=== PATIENT | female | born 1960 | race African-American/Black ===

== ENCOUNTER 2018-12-10 11:09 | Inpatient (IN) | payer MEDICAID ==
[~2018-12-10] VITALS: Ht 167.6 cm; Wt 75.7 kg
[~2018-12-10 11:09] MED LIST: LOP25 PO; MYCO180T PO; NIFE30TA94 PO; OMEG1CAP50 PO; PRED5TAB48 PO; PROG1 PO; PROT40 PO
[2018-12-10 12:53] LABS: CLARITY URINE CLOUDY (CLEAR); COLOR URINE YELLOW (YELLOW); KETONES URINE NEGATIVE (NEGATIVE); LEUKOCYTE ESTERASE URINE 1+ (NEGATIVE); NITRITE URINE POSITIVE (NEGATIVE); OCCULT BLOOD URINE NEGATIVE (NEGATIVE); PH URINE 5.5 (4.5-8.0); PROTEIN URINE 2+ (NEGATIVE); SPECIFIC GRAVITY URINE 1.015 (1.005-1.030); UROBILINOGEN URINE 0.2 E.U./dL (0.2-1.0)
[2018-12-10] MEDS ORDERED: LEVOFLOXACIN 500MG TABLET PO ONE (15:00)
[2018-12-10 15:25] LABS: HEMATOCRIT. 21.9 % (36.0-48.0); HEMOGLOBIN. 7.1 g/dL (12.0-16.0); MEAN CORPUSCULAR VOLUME 89.5 fL (81.0-99.0); MEAN PLATELET VOLUME 7.2 fl (7.4-10.4); PLATELET 225 x1000/uL (130-400); RED BLOOD CELL COUNT 2.45 mill/uL (4.2-5.4); RED CELL DISTRIBUTION WIDTH 14.1 % (11.6-14.6)
[2018-12-10 16:12] LABS: PLATELET ESTIMATE NORMAL
[2018-12-10] MEDS ORDERED: DIPHENHYDRAMINE 50MG/ML VIAL IV PRN (17:15)
[2018-12-10] MEDS ORDERED: IPRATROPIUM/ALBUTEROL 0.5-3(2.5)MG/3ML NEB INH PRN (17:15)
[2018-12-10] MEDS ORDERED: DOCUSATE SODIUM 100MG CAPSULE PO PRN (17:15)
[2018-12-10] MEDS ORDERED: HYDROCODONE/ACETAMINOPHEN 5/325MG TABLET PO PRN (17:15)
[2018-12-10] MEDS ORDERED: LEVOFLOXACIN 500MG PREMIX 100 ML IV SCH (17:15)
[2018-12-10] MEDS ORDERED: GUAIFENESIN 200MG/10ML SUGAR FREE UDC PO PRN (17:15)
[2018-12-10] MEDS ORDERED: MAGNESIUM/ALUMINUM HYDROXIDE/SIMETHICONE 30ML UDC PO PRN (17:15)
[2018-12-10] MEDS ORDERED: ONDANSETRON HCL 4MG/2ML INJ IV PRN (17:15)
[2018-12-10] MEDS ORDERED: CLONIDINE 0.1MG TABLET PO PRN (17:15)
[2018-12-10] MEDS ORDERED: ACETAMINOPHEN 325MG TABLET PO PRN (17:15)
[2018-12-10 18:03] LABS: PHOSPHORUS 3.4 mg/dL (2.5-4.9)
[2018-12-10 19:10] VITALS: BP 179/83
[2018-12-10] MEDS ORDERED: TEMAZEPAM 15MG CAPSULE PO PRN (19:15)
[2018-12-10 20:11] VITALS: BP 151/92
[2018-12-10 20:45] VITALS: BP 151/92
[2018-12-10] MEDS ORDERED: MYCOPHENOLATE SODIUM 180 MG TABLET.DR PO SCH (21:00)
[2018-12-10 21:43] LABS: TOTAL IRON BINDING CAPACITY 208 ug/dL (250-450)
[2018-12-10] MEDS: PANTOPRAZOLE 40MG DR TABLET PO SCH (21:53)
[2018-12-10] MEDS: HYDRALAZINE HCL 25MG TABLET PO SCH (21:53)
[2018-12-10] MEDS: MEROPENEM 500 MG in SODIUM CHLORIDE 0.9% 50 ML IV SCH (21:53)
[2018-12-10] MEDS: METOPROLOL TARTRATE 50MG TABLET PO SCH (21:53)
[2018-12-10] MEDS ORDERED: HYDRALAZINE HCL 25MG TABLET PO SCH (22:00)
[2018-12-10] MEDS: TACROLIMUS 1MG CAPSULE PO SCH (23:15)
[2018-12-10] MEDS: MYCOPHENOLATE SODIUM 180 MG TABLET.DR PO SCH (23:15)
[2018-12-11] VITALS (11 sets, daily range): BP systolic 117–149; BP diastolic 55–84
[2018-12-11 00:06] LABS: CREATINE KINASE 150 IU/L (26-192)
[2018-12-11 00:07] LABS: CREATINE KINASE MB FRACTION < 1.0 ng/mL (0.5-3.6)
[2018-12-11] MEDS ORDERED: CALC0.253 PO (02:07)
[2018-12-11] MEDS ORDERED: HYDR-4134 PO (02:07)
[2018-12-11] MEDS ORDERED: ALBU90AE IH (02:07)
[2018-12-11] MEDS ORDERED: VALC450 PO (02:07)
[2018-12-11] MEDS ORDERED: NYST15PO4 TP (02:07)
[2018-12-11] MEDS: HYDRALAZINE HCL 25MG TABLET PO SCH ×3 (06:00→21:06)
[2018-12-11 07:31] LABS: BASOPHILS % 0.7 % (0.0-2.0); EOSINOPHILS % 3.8 % (0.0-5.0); HEMATOCRIT. 24.3 % (36.0-48.0); HEMOGLOBIN. 8.1 g/dL (12.0-16.0); MEAN CORPUSCULAR HEMOGLOBIN 30.4 pg (28.0-32.0); MEAN CORPUSCULAR VOLUME 91.9 fL (81.0-99.0); MEAN PLATELET VOLUME 7.6 fl (7.4-10.4); MONOCYTES % 14.7 % (2.0-8.0); NEUTROPHILS % 64.8 % (40.0-76.0); PLATELET 204 x1000/uL (130-400); RED BLOOD CELL COUNT 2.65 mill/uL (4.2-5.4)
[2018-12-11 08:09] LABS: CHLORIDE 110 mEq/L (98-107)
[2018-12-11 08:28] LABS: CREATINE KINASE MB FRACTION < 1.0 ng/mL (0.5-3.6)
[2018-12-11 08:29] LABS: CREATINE KINASE 135 IU/L (26-192)
[2018-12-11 08:33] LABS: PHOSPHORUS 3.8 mg/dL (2.5-4.9)
[2018-12-11 08:35] LABS: LDL CHOLESTEROL 100 mg/dL (5-100)
[2018-12-11 08:37] LABS: HDL CHOLESTEROL 53 mg/dL (40-59)
[2018-12-11] MEDS: SEVELAMER CARBONATE 800 MG TABLET PO SCH ×3 (08:48→17:50)
[2018-12-11] MEDS: FISH OIL/OMEGA-3 FATTY ACIDS 1000MG CAPSULE PO SCH (08:50)
[2018-12-11] MEDS: CALCITRIOL 0.25MCG CAPSULE PO SCH (08:50)
[2018-12-11] MEDS: METOPROLOL TARTRATE 50MG TABLET PO SCH ×2 (08:51→21:06)
[2018-12-11] MEDS ORDERED: METOPROLOL TARTRATE 50MG TABLET PO SCH (09:00)
[2018-12-11] MEDS ORDERED: NIFEDIPINE XL 90MG TAB PO SCH (09:00)
[2018-12-11] MEDS: DEXT 5%/0.45% NACL 1000ML 1,000 ML IV SCH (09:09)
[2018-12-11] MEDS: FERROUS SULFATE 325MG TABLET PO SCH ×2 (09:47→17:21)
[2018-12-11] MEDS: PREDNISONE 5MG TABLET PO SCH (09:48)
[2018-12-11] MEDS: MYCOPHENOLATE SODIUM 180 MG TABLET.DR PO SCH ×2 (09:48→21:05)
[2018-12-11] MEDS: NYSTATIN 100,000 UNITS/ML 5ML UDC SSW SCH ×3 (09:50→17:26)
[2018-12-11] MEDS: NIFEDIPINE XL 90MG TAB PO SCH (09:50)
[2018-12-11] MEDS: MEROPENEM 500 MG in SODIUM CHLORIDE 0.9% 50 ML IV SCH ×2 (10:14→21:07)
[2018-12-11 10:20] LABS: HEMATOCRIT 24.9 % (36.0-48.0); HEMOGLOBIN 8.2 g/dL (12.0-16.0)
[2018-12-11] MEDS: TACROLIMUS 1MG CAPSULE PO SCH ×2 (17:26→21:06)
[2018-12-11] MEDS ORDERED: EPOETIN ALFA 10000UNITS/ML VIAL SUBCUT SCH (21:00)
[2018-12-11] MEDS: PANTOPRAZOLE 40MG DR TABLET PO SCH (21:06)
[2018-12-12] VITALS: BP 129/77
[2018-12-12] MEDS: DEXT 5%/0.45% NACL 1000ML 1,000 ML IV SCH ×2 (01:47→19:40)
[2018-12-12 04:00] VITALS: BP 146/75
[2018-12-12] MEDS: HYDRALAZINE HCL 25MG TABLET PO SCH ×3 (06:00→23:19)
[2018-12-12] MEDS: SEVELAMER CARBONATE 800 MG TABLET PO SCH ×3 (07:50→17:50)
[2018-12-12 08:00] VITALS: BP 163/77
[2018-12-12] MEDS: FISH OIL/OMEGA-3 FATTY ACIDS 1000MG CAPSULE PO SCH (09:00)
[2018-12-12] MEDS: CALCITRIOL 0.25MCG CAPSULE PO SCH (10:03)
[2018-12-12] MEDS: MYCOPHENOLATE SODIUM 180 MG TABLET.DR PO SCH ×2 (10:03→20:52)
[2018-12-12] MEDS: FERROUS SULFATE 325MG TABLET PO SCH ×2 (10:03→17:21)
[2018-12-12] MEDS: NYSTATIN 100,000 UNITS/ML 5ML UDC SSW SCH ×3 (10:04→17:21)
[2018-12-12] MEDS: TACROLIMUS 1MG CAPSULE PO SCH ×2 (10:04→20:52)
[2018-12-12] MEDS: PREDNISONE 5MG TABLET PO SCH (10:04)
[2018-12-12] MEDS: METOPROLOL TARTRATE 50MG TABLET PO SCH ×2 (10:11→20:51)
[2018-12-12] MEDS: NIFEDIPINE XL 90MG TAB PO SCH (10:13)
[2018-12-12] MEDS: MEROPENEM 500 MG in SODIUM CHLORIDE 0.9% 50 ML IV SCH ×2 (11:13→23:50)
[2018-12-12 12:00] VITALS: BP 115/62
[2018-12-12 16:00] VITALS: BP 114/63
[2018-12-12] MEDS: VALGANCICLOVIR HYDROCHLORIDE 450MG TABLET PO SCH (16:41)
[2018-12-12 20:00] VITALS: BP 145/78
[2018-12-12] MEDS ORDERED: MAGNESIUM 1 G PREMIX 100 ML IV NR (20:00)
[2018-12-12] MEDS: PANTOPRAZOLE 40MG DR TABLET PO SCH (20:52)
[2018-12-13] VITALS: BP 147/83
[2018-12-13 04:00] VITALS: BP 152/70
[2018-12-13 05:20] LABS: BASOPHILS % 0.5 % (0.0-2.0); EOSINOPHILS % 3.2 % (0.0-5.0); HEMATOCRIT. 24.6 % (36.0-48.0); HEMOGLOBIN. 8.1 g/dL (12.0-16.0); LYMPHOCYTES % 15.8 % (20.0-50.0); MEAN CORPUSCULAR HEMOGLOBIN 29.5 pg (28.0-32.0); MEAN CORPUSCULAR VOLUME 89.2 fL (81.0-99.0); MEAN PLATELET VOLUME 7.6 fl (7.4-10.4); MONOCYTES % 12.5 % (2.0-8.0); PLATELET 212 x1000/uL (130-400); RED BLOOD CELL COUNT 2.76 mill/uL (4.2-5.4); RED CELL DISTRIBUTION WIDTH 13.9 % (11.6-14.6)
[2018-12-13] MEDS: HYDRALAZINE HCL 25MG TABLET PO SCH ×3 (05:33→21:00)
[2018-12-13 05:37] LABS: PARTIAL THROMBOPLASTIN TIME 26.6 sec (23.4-31.0); PROTHROMBIN TIME 10.1 sec (9.6-11.0)
[2018-12-13] MEDS ORDERED: LIDOCAINE HCL 1% 20ML VIAL (Pyxis) INJ ONE (07:26)
[2018-12-13 08:00] VITALS: BP 141/70
[2018-12-13] MEDS: CALCITRIOL 0.25MCG CAPSULE PO SCH (09:28)
[2018-12-13] MEDS: NIFEDIPINE XL 90MG TAB PO SCH (09:28)
[2018-12-13] MEDS: FISH OIL/OMEGA-3 FATTY ACIDS 1000MG CAPSULE PO SCH (09:28)
[2018-12-13] MEDS: NYSTATIN 100,000 UNITS/ML 5ML UDC SSW SCH ×3 (09:28→18:24)
[2018-12-13] MEDS: PREDNISONE 5MG TABLET PO SCH (09:28)
[2018-12-13] MEDS: SEVELAMER CARBONATE 800 MG TABLET PO SCH ×3 (09:29→17:50)
[2018-12-13] MEDS: TACROLIMUS 1MG CAPSULE PO SCH ×2 (09:29→20:59)
[2018-12-13] MEDS: MYCOPHENOLATE SODIUM 180 MG TABLET.DR PO SCH ×2 (09:30→20:59)
[2018-12-13] MEDS: METOPROLOL TARTRATE 50MG TABLET PO SCH ×2 (09:30→21:00)
[2018-12-13] MEDS: FERROUS SULFATE 325MG TABLET PO SCH ×2 (09:31→18:24)
[2018-12-13] MEDS: MEROPENEM 500 MG in SODIUM CHLORIDE 0.9% 50 ML IV SCH ×2 (11:54→21:01)
[2018-12-13 12:00] VITALS: BP 163/70
[2018-12-13 16:00] VITALS: BP 136/64
[2018-12-13] MEDS: DEXT 5%/0.45% NACL 1000ML 1,000 ML IV SCH (18:24)
[2018-12-13 20:00] VITALS: BP 170/81
[2018-12-13] MEDS ORDERED: FAMOTIDINE 20MG TABLET PO SCH (21:00)
[2018-12-14] VITALS: BP 116/77
[2018-12-14] MEDS: DEXT 5%/0.45% NACL 1000ML 1,000 ML IV SCH (03:25)
[2018-12-14 04:00] VITALS: BP 174/58
[2018-12-14] MEDS: HYDRALAZINE HCL 25MG TABLET PO SCH ×2 (05:10→13:57)
[2018-12-14] MEDS: SEVELAMER CARBONATE 800 MG TABLET PO SCH ×2 (07:50→12:26)
[2018-12-14 08:00] VITALS: BP 180/59
[2018-12-14] MEDS: FISH OIL/OMEGA-3 FATTY ACIDS 1000MG CAPSULE PO SCH (08:55)
[2018-12-14] MEDS: FERROUS SULFATE 325MG TABLET PO SCH (08:56)
[2018-12-14] MEDS: CALCITRIOL 0.25MCG CAPSULE PO SCH (08:57)
[2018-12-14] MEDS: VALGANCICLOVIR HYDROCHLORIDE 450MG TABLET PO SCH (08:57)
[2018-12-14] MEDS: MYCOPHENOLATE SODIUM 180 MG TABLET.DR PO SCH (08:57)
[2018-12-14] MEDS: TACROLIMUS 1MG CAPSULE PO SCH (08:57)
[2018-12-14] MEDS: METOPROLOL TARTRATE 50MG TABLET PO SCH (08:58)
[2018-12-14] MEDS: NIFEDIPINE XL 90MG TAB PO SCH (08:58)
[2018-12-14] MEDS: PREDNISONE 5MG TABLET PO SCH (08:58)
[2018-12-14] MEDS: NYSTATIN 100,000 UNITS/ML 5ML UDC SSW SCH ×2 (08:59→13:00)
[2018-12-14] MEDS: MEROPENEM 500 MG in SODIUM CHLORIDE 0.9% 50 ML IV SCH (10:52)
[2018-12-14 12:00] VITALS: BP 131/71
[2018-12-14 16:42] VITALS: BP 131/71
[2018-12-16 04:16] LABS: 25-HYDROXY VITAMIN D3 17 ng/mL (.)
== END 2018-12-14 17:41 | disposition home health service (06) | DRG 463 ==
LOC: ER 11:09 → 6WST 16:58 → ENRESERV 17:55 → EDBEDREQSVC 19:02 → EDBEDREQ 19:02 → EDBEDREQTM 19:02
PROVIDERS: ADMIT Internal Medicine; ATTEND Internal Medicine
PROC: 30233N1 Transfusion of Nonautologous Red Blood Cells into Peripheral Vein, Percutaneous Approach (ICD-10-PCS; 2018-12-11)
PROC: 02HV33Z Insertion of Infusion Device into Superior Vena Cava, Percutaneous Approach (ICD-10-PCS; principal; 2018-12-13)
PROC: B548ZZA Ultrasonography of Superior Vena Cava, Guidance (ICD-10-PCS; 2018-12-13)
PROC: B5181ZA Fluoroscopy of Superior Vena Cava using Low Osmolar Contrast, Guidance (ICD-10-PCS; 2018-12-13)
DX: N30.00 Acute cystitis without hematuria (principal); T86.19 Other complication of kidney transplant; M32.9 Systemic lupus erythematosus, unspecified; E46 Unspecified protein-calorie malnutrition; N13.70 Vesicoureteral-reflux, unspecified; E83.42 Hypomagnesemia; N18.4 Chronic kidney disease, stage 4 (severe); R15.9 Full incontinence of feces; B96.20 Unspecified Escherichia coli [E. coli] as the cause of diseases classified elsewhere; J42 Unspecified chronic bronchitis; J32.9 Chronic sinusitis, unspecified; I12.9 Hypertensive chronic kidney disease with stage 1 through stage 4 chronic kidney disease, or unspecified chronic kidney disease; D72.819 Decreased white blood cell count, unspecified; D63.8 Anemia in other chronic diseases classified elsewhere; Z16.12 Extended spectrum beta lactamase (ESBL) resistance; Z96.642 Presence of left artificial hip joint; Y83.0 Surgical operation with transplant of whole organ as the cause of abnormal reaction of the patient, or of later complication, without mention of misadventure at the time of the procedure; Z85.41 Personal history of malignant neoplasm of cervix uteri; Z90.710 Acquired absence of both cervix and uterus; Z79.899 Other long term (current) drug therapy; Z86.718 Personal history of other venous thrombosis and embolism; Z88.1 Allergy status to other antibiotic agents; Z88.0 Allergy status to penicillin; Z88.8 Allergy status to other drugs, medicaments and biological substances; Z68.27 Body mass index [BMI] 27.0-27.9, adult
CPT/HCPCS: 36415; 36573; 80048; 80061; 82306; 82550; 82553; 83540; 83550; 83735; 83970; 84100; 84443; 85014; 85018; 85049; 85384; 86850; 86900; 86920; 87077; 87186; 93970; 96360; 99285; C1725; C1893; J0885; J2185; J3475; J3490; J7040; J7507; J7512; J7517; P9016

== ENCOUNTER 2018-12-24 06:13 | Emergency (ER) | payer MEDICAID ==
[~2018-12-24] VITALS: Ht 167.6 cm; Wt 73.6 kg
[~2018-12-24 06:13] MED LIST changes: +ALBU90AE IH; +CALC0.253 PO; +HYDR-4134 PO; +NYST15PO4 TP; +VALC450 PO
[2018-12-24 07:30] VITALS: BP 158/80
== END 2018-12-24 09:15 | disposition home or self-care (01) ==
LOC: ER 06:13
DX: Z44.8 Encounter for fitting and adjustment of other external prosthetic devices (principal); I10 Essential (primary) hypertension; N28.9 Disorder of kidney and ureter, unspecified; Z88.0 Allergy status to penicillin; Z88.1 Allergy status to other antibiotic agents; Z79.899 Other long term (current) drug therapy; Z96.649 Presence of unspecified artificial hip joint; Z90.710 Acquired absence of both cervix and uterus; Z94.0 Kidney transplant status
CPT/HCPCS: 99282

== ENCOUNTER 2019-06-01 11:45 | Emergency (ER) | payer MEDICAID ==
[~2019-06-01] VITALS: Ht 165.1 cm; Wt 70.2 kg
[2019-06-01] MEDS ORDERED: HYDRALAZINE HCL 50MG TABLET PO ONE (13:00)
[2019-06-01 14:48] VITALS: BP 163/88
== END 2019-06-01 14:52 | disposition home or self-care (01) ==
LOC: ER 12:30
DX: I10 Essential (primary) hypertension (principal); Z90.710 Acquired absence of both cervix and uterus; Z88.1 Allergy status to other antibiotic agents; Z88.0 Allergy status to penicillin; Z79.899 Other long term (current) drug therapy
CPT/HCPCS: 99282

== ENCOUNTER 2019-12-16 10:40 | Inpatient (IN) | payer MEDICAID ==
[~2019-12-16] VITALS: Ht 162.6 cm; Wt 53.2 kg
[2019-12-16 11:54] LABS: BG BASE EXCESS 5.5 mmol/L (-2.0-2.0); BG CARBOXYHEMOGLOBIN 0.3 % (0.5-1.5); BG DEOXYHEMOGLOBIN 4.8 % (0.0-5.0); BG FRACTION INSPIRED OXYGEN 21; BG HCO3 ACT 28.8 mmol/L (22.0-26.0); BG METHEMOGLOBIN 0.2 % (0.0-1.5); BG OXYGEN SATURATION 95.2 % (92.0-98.5); BG OXYHEMOGLOBIN 94.7 % (94.0-97.0); BG PCO2 36.9 mmHg (35.0-45.0); BG PO2 75.7 mmHg (75.0-100.0); BG SAMPLE SITE RIGHT RADIAL; BG TOTAL HEMOGLOBIN 10.7 g/dL (12.0-18.0); BG VENT MODE ROOM AIR
[2019-12-16 11:59] LABS: BASOPHILS % 0.7 % (0.0-2.0); EOSINOPHILS % 8.4 % (0.0-5.0); HEMATOCRIT. 31.2 % (36.0-48.0); HEMOGLOBIN. 10.1 g/dL (12.0-16.0); LYMPHOCYTES % 23.3 % (20.0-50.0); MEAN CORPUSCULAR HEMOGLOBIN 27.5 pg (28.0-32.0); MEAN CORPUSCULAR VOLUME 84.9 fL (81.0-99.0); MEAN PLATELET VOLUME 7.6 fl (7.4-10.4); MONOCYTES % 11.5 % (2.0-8.0); NEUTROPHILS % 56.1 % (40.0-76.0); PLATELET 260 x1000/uL (130-400); RED BLOOD CELL COUNT 3.67 mill/uL (4.2-5.4); RED CELL DISTRIBUTION WIDTH 17.3 % (11.6-14.6)
[2019-12-16 12:07] LABS: CHLORIDE 102 mEq/L (98-107)
[2019-12-16] MEDS ORDERED: HYDROCODONE/ACETAMINOPHEN 5/325MG TABLET PO PRN (18:45)
[2019-12-16] MEDS ORDERED: ACETAMINOPHEN 325MG TABLET PO PRN ×2 (18:45)
[2019-12-16] MEDS ORDERED: LORAZEPAM 0.5MG TABLET PO PRN (18:45)
[2019-12-16] MEDS ORDERED: DOCUSATE SODIUM 100MG CAPSULE PO PRN (18:45)
[2019-12-16] MEDS ORDERED: ONDANSETRON HCL 4MG/2ML INJ IV PRN (18:45)
[2019-12-16] MEDS ORDERED: TEMAZEPAM 15MG CAPSULE PO PRN (19:00)
[2019-12-16 21:30] VITALS: BP_SYST 154; BP_SYST 170; BP_DIAS 92
[2019-12-16] MEDS: ENOXAPARIN 30MG/0.3ML SYR SUBCUT SCH (22:42)
[2019-12-16] MEDS: METOPROLOL TARTRATE 25MG TABLET PO SCH (22:42)
[2019-12-17] VITALS (7 sets, daily range): BP systolic 150–187; BP diastolic 90–106
[2019-12-17] MEDS ORDERED: FERR325T6 PO (02:09)
[2019-12-17] MEDS ORDERED: CLON0.2T PO (02:13)
[2019-12-17] MEDS ORDERED: FOLI1TAB87 PO (02:13)
[2019-12-17] MEDS ORDERED: FAMO20TA8 PO (02:13)
[2019-12-17] MEDS ORDERED: ACET-2708 MT (02:13)
[2019-12-17] MEDS: HYDRALAZINE HCL 25MG TABLET PO SCH ×3 (05:33→21:52)
[2019-12-17 06:30] LABS: HEMATOCRIT. 30.9 % (36.0-48.0); HEMOGLOBIN. 10.1 g/dL (12.0-16.0); LYMPHOCYTES % 35.2 % (20.0-50.0); MEAN CORPUSCULAR HEMOGLOBIN 27.7 pg (28.0-32.0); MEAN CORPUSCULAR VOLUME 84.9 fL (81.0-99.0); MEAN PLATELET VOLUME 7.7 fl (7.4-10.4); MONOCYTES % 11.4 % (2.0-8.0); NEUTROPHILS % 44.4 % (40.0-76.0); PLATELET 263 x1000/uL (130-400); RED BLOOD CELL COUNT 3.64 mill/uL (4.2-5.4); RED CELL DISTRIBUTION WIDTH 17.1 % (11.6-14.6)
[2019-12-17 06:43] LABS: PHOSPHORUS 4.3 mg/dL (2.5-4.9)
[2019-12-17 07:06] LABS: VITAMIN B12 SERUM 896 pg/mL (211-911)
[2019-12-17 07:14] LABS: FOLIC ACID (FOLATE) SERUM > 20.00 ng/mL (>5.38)
[2019-12-17] MEDS: CALCIUM ACETATE 667MG CAPSULE PO SCH ×4 (08:10→18:10)
[2019-12-17] MEDS: NIFEDIPINE XL 90MG TAB PO SCH (08:36)
[2019-12-17] MEDS: FOLIC ACID/VITAMIN B COMP W-C TABLET PO SCH ×2 (08:36→08:58)
[2019-12-17] MEDS: METOPROLOL TARTRATE 25MG TABLET PO SCH ×2 (08:37→21:53)
[2019-12-17] MEDS: PANTOPRAZOLE 40MG DR TABLET PO SCH (08:37)
[2019-12-17] MEDS: CALCITRIOL 0.25MCG CAPSULE PO SCH (08:37)
[2019-12-17] MEDS: PREDNISONE 5MG TABLET PO SCH (08:38)
[2019-12-17] MEDS: CLONIDINE 0.1MG TABLET PO PRN ×2 (08:38→21:52)
[2019-12-17] MEDS ORDERED: GUAIFENESIN 200MG/10ML SUGAR FREE UDC PO PRN (11:30)
[2019-12-17] MEDS ORDERED: ALBUTEROL 6.7GM HFA INHALER ORI PRN (11:45)
[2019-12-17] MEDS ORDERED: AZTREONAM 1 G in DEXTROSE 5% WATER 50 ML IV NR (15:00)
[2019-12-17] MEDS: METRONIDAZOLE 500 MG PREMIX 100 ML IV SCH (16:04)
[2019-12-17] MEDS: ENOXAPARIN 30MG/0.3ML SYR SUBCUT SCH (20:15)
[2019-12-17] MEDS ORDERED: ALTEPLASE 2MG/VIAL ITC NR (20:30)
[2019-12-18] VITALS: BP 159/102
[2019-12-18] MEDS: METRONIDAZOLE 500 MG PREMIX 100 ML IV SCH ×2 (02:10→14:32)
[2019-12-18] MEDS: AZTREONAM 500MG in DEXTROSE 5% WATER 50ML IV SCH ×2 (03:59→16:02)
[2019-12-18 04:00] VITALS: BP 188/102
[2019-12-18] MEDS: HYDRALAZINE HCL 25MG TABLET PO SCH ×3 (05:24→22:16)
[2019-12-18] MEDS: CALCIUM ACETATE 667MG CAPSULE PO SCH ×3 (06:16→17:32)
[2019-12-18 08:00] VITALS: BP 174/101
[2019-12-18] MEDS: METOPROLOL TARTRATE 25MG TABLET PO SCH ×2 (08:11→22:13)
[2019-12-18] MEDS: PANTOPRAZOLE 40MG DR TABLET PO SCH (08:11)
[2019-12-18] MEDS: NIFEDIPINE XL 90MG TAB PO SCH (08:12)
[2019-12-18] MEDS: FOLIC ACID/VITAMIN B COMP W-C TABLET PO SCH (08:12)
[2019-12-18] MEDS: PREDNISONE 5MG TABLET PO SCH (08:12)
[2019-12-18] MEDS: CALCITRIOL 0.25MCG CAPSULE PO SCH (08:12)
[2019-12-18] MEDS ORDERED: VALGANCICLOVIR HYDROCHLORIDE 450MG TABLET PO SCH (09:00)
[2019-12-18 12:00] VITALS: BP 167/99
[2019-12-18] MEDS: CLONIDINE 0.1MG TABLET PO PRN (12:47)
[2019-12-18] MEDS: ALBUTEROL 6.7GM HFA INHALER ORI SCH (14:00)
[2019-12-18 16:00] VITALS: BP 145/87
[2019-12-18 20:00] VITALS: BP 126/70
[2019-12-18] MEDS: ENOXAPARIN 30MG/0.3ML SYR SUBCUT SCH (22:13)
[2019-12-19] MEDS: METRONIDAZOLE 500 MG PREMIX 100 ML IV SCH ×2 (03:16→14:32)
[2019-12-19] MEDS: AZTREONAM 500MG in DEXTROSE 5% WATER 50ML IV SCH ×2 (03:17→16:33)
[2019-12-19 04:00] VITALS: BP 156/89
[2019-12-19] MEDS: CALCIUM ACETATE 667MG CAPSULE PO SCH ×4 (06:48→17:37)
[2019-12-19] MEDS: HYDRALAZINE HCL 25MG TABLET PO SCH (06:52)
[2019-12-19 07:13] LABS: BASOPHILS % 1.1 % (0.0-2.0); EOSINOPHILS % 7.6 % (0.0-5.0); HEMATOCRIT. 30.3 % (36.0-48.0); HEMOGLOBIN. 9.7 g/dL (12.0-16.0); LYMPHOCYTES % 31.7 % (20.0-50.0); MEAN CORPUSCULAR HEMOGLOBIN 27.3 pg (28.0-32.0); MEAN CORPUSCULAR VOLUME 85.3 fL (81.0-99.0); MEAN PLATELET VOLUME 7.4 fl (7.4-10.4); MONOCYTES % 13.9 % (2.0-8.0); NEUTROPHILS % 45.7 % (40.0-76.0); PLATELET 268 x1000/uL (130-400); RED BLOOD CELL COUNT 3.55 mill/uL (4.2-5.4); RED CELL DISTRIBUTION WIDTH 17.1 % (11.6-14.6)
[2019-12-19 08:00] VITALS: BP 170/92
[2019-12-19] MEDS: ALBUTEROL 6.7GM HFA INHALER ORI SCH (08:00)
[2019-12-19] MEDS: NIFEDIPINE XL 90MG TAB PO SCH (08:53)
[2019-12-19] MEDS: FOLIC ACID/VITAMIN B COMP W-C TABLET PO SCH (08:53)
[2019-12-19] MEDS: FAMOTIDINE 20MG TABLET PO SCH (08:53)
[2019-12-19] MEDS: PREDNISONE 5MG TABLET PO SCH (08:53)
[2019-12-19] MEDS: CALCITRIOL 0.25MCG CAPSULE PO SCH (08:53)
[2019-12-19] MEDS: METOPROLOL TARTRATE 25MG TABLET PO SCH ×2 (08:53→20:52)
[2019-12-19 12:00] VITALS: BP 161/97
[2019-12-19] MEDS ORDERED: IPRATROPIUM/ALBUTEROL 0.5-3(2.5)MG/3ML NEB HHN PRN (13:15)
[2019-12-19] MEDS: HYDRALAZINE HCL 100MG TABLET PO SCH ×2 (14:00→21:26)
[2019-12-19] MEDS: BENZONATATE 100MG CAPSULE PO SCH ×2 (14:32→21:25)
[2019-12-19 16:00] VITALS: BP 153/83
[2019-12-19 20:00] VITALS: BP 158/92
[2019-12-19] MEDS: ENOXAPARIN 30MG/0.3ML SYR SUBCUT SCH (20:51)
[2019-12-20] VITALS: BP 126/67
[2019-12-20] MEDS: IPRATROPIUM/ALBUTEROL 0.5-3(2.5)MG/3ML NEB HHN SCH ×3 (01:25→14:00)
[2019-12-20] MEDS: METRONIDAZOLE 500 MG PREMIX 100 ML IV SCH ×2 (01:30→14:30)
[2019-12-20] MEDS: AZTREONAM 500MG in DEXTROSE 5% WATER 50ML IV SCH (02:35)
[2019-12-20 04:00] VITALS: BP 142/84
[2019-12-20] MEDS: BENZONATATE 100MG CAPSULE PO SCH ×2 (06:24→14:00)
[2019-12-20] MEDS: HYDRALAZINE HCL 100MG TABLET PO SCH ×2 (06:25→14:00)
[2019-12-20 07:56] LABS: HEMATOCRIT. 32.6 % (36.0-48.0); HEMOGLOBIN. 10.4 g/dL (12.0-16.0); MEAN CORPUSCULAR HEMOGLOBIN 27.2 pg (28.0-32.0); MEAN CORPUSCULAR VOLUME 84.8 fL (81.0-99.0); MEAN PLATELET VOLUME 7.7 fl (7.4-10.4); PLATELET 259 x1000/uL (130-400); RED BLOOD CELL COUNT 3.85 mill/uL (4.2-5.4); RED CELL DISTRIBUTION WIDTH 17.6 % (11.6-14.6)
[2019-12-20 08:00] VITALS: BP 135/76
[2019-12-20] MEDS: FOLIC ACID/VITAMIN B COMP W-C TABLET PO SCH (08:44)
[2019-12-20] MEDS: FAMOTIDINE 20MG TABLET PO SCH (08:44)
[2019-12-20] MEDS: CALCIUM ACETATE 667MG CAPSULE PO SCH ×2 (08:44→13:00)
[2019-12-20] MEDS: CALCITRIOL 0.25MCG CAPSULE PO SCH (08:44)
[2019-12-20] MEDS: PREDNISONE 5MG TABLET PO SCH (08:44)
[2019-12-20] MEDS: METOPROLOL TARTRATE 25MG TABLET PO SCH (08:46)
[2019-12-20] MEDS: NIFEDIPINE XL 90MG TAB PO SCH (08:46)
[2019-12-20] MEDS ORDERED: FAMO20TA8 PO (11:06)
[2019-12-20] MEDS ORDERED: CLON0.2T PO (11:06)
[2019-12-20] MEDS ORDERED: CALC667C PO (11:06)
[2019-12-20] MEDS ORDERED: PROT40 PO (11:06)
[2019-12-20] MEDS ORDERED: TEMA15CA5 PO (11:06)
[2019-12-20] MEDS ORDERED: FERR325T6 PO (11:06)
[2019-12-20] MEDS ORDERED: METO25TA6 PO (11:06)
[2019-12-20] MEDS ORDERED: BENZ100C86 PO (11:06)
[2019-12-20] MEDS ORDERED: NIFE30TA94 PO (11:06)
[2019-12-20] MEDS ORDERED: HYDR100T26 PO (11:06)
[2019-12-20] MEDS ORDERED: PRED5TAB48 PO (11:06)
[2019-12-20 12:00] VITALS: BP 135/71
[2019-12-20 13:11] VITALS: BP 158/81
[2019-12-20 13:18] LABS: PLATELET ESTIMATE NORMAL
== END 2019-12-20 14:55 | disposition home or self-care (01) | DRG 720 ==
LOC: ER 10:40 → 7WST 14:17 → EDBEDREQTM 14:30 → EDBEDREQ 14:30 → ENRESERV 20:10 → 5WST 12-17 22:20
PROVIDERS: ADMIT Internal Medicine; ATTEND Internal Medicine
PROC: 5A1D70Z Performance of Urinary Filtration, Intermittent, Less than 6 Hours Per Day (ICD-10-PCS; principal; 2019-12-17)
PROC: 5A1D70Z Performance of Urinary Filtration, Intermittent, Less than 6 Hours Per Day (ICD-10-PCS; 2019-12-19)
DX: A41.9 Sepsis, unspecified organism (principal); J96.00 Acute respiratory failure, unspecified whether with hypoxia or hypercapnia; J18.1 Lobar pneumonia, unspecified organism; I13.2 Hypertensive heart and chronic kidney disease with heart failure and with stage 5 chronic kidney disease, or end stage renal disease; D72.1 Eosinophilia; N18.6 End stage renal disease; R79.89 Other specified abnormal findings of blood chemistry; R94.31 Abnormal electrocardiogram [ECG] [EKG]; N25.81 Secondary hyperparathyroidism of renal origin; M32.9 Systemic lupus erythematosus, unspecified; E83.39 Other disorders of phosphorus metabolism; Z96.642 Presence of left artificial hip joint; E87.3 Alkalosis; M32.14 Glomerular disease in systemic lupus erythematosus; E46 Unspecified protein-calorie malnutrition; R15.9 Full incontinence of feces; J45.909 Unspecified asthma, uncomplicated; I50.9 Heart failure, unspecified; J42 Unspecified chronic bronchitis; E66.01 Morbid (severe) obesity due to excess calories; J32.9 Chronic sinusitis, unspecified; D64.9 Anemia, unspecified; Z99.2 Dependence on renal dialysis; Z90.710 Acquired absence of both cervix and uterus; Z88.9 Allergy status to unspecified drugs, medicaments and biological substances; Z88.1 Allergy status to other antibiotic agents; Z88.0 Allergy status to penicillin; Z88.8 Allergy status to other drugs, medicaments and biological substances; Z79.899 Other long term (current) drug therapy; Z68.20 Body mass index [BMI] 20.0-20.9, adult; Z03.818 Encounter for observation for suspected exposure to other biological agents ruled out; Z87.440 Personal history of urinary (tract) infections
CPT/HCPCS: 36415; 36600; 71045; 80048; 80053; 82375; 82607; 82746; 82805; 83036; 83735; 83880; 84100; 84145; 84484; 85025; 87635; 93005; 94640; 96372; 99291; J1650; J2997; J3490; J7060; J7512

== ENCOUNTER 2019-12-31 03:47 | Inpatient (IN) | payer MEDICAID ==
[~2019-12-31] VITALS: Ht 165.1 cm; Wt 67.2 kg
[~2019-12-31 03:47] MED LIST changes: +ACET-2708 MT; -ALBU90AE IH; +BENZ100C86 PO; +CALC667C PO; +CLON0.2T PO; +FAMO20TA8 PO; +FERR325T6 PO; +FOLI1TAB87 PO; -HYDR-4134 PO; +HYDR100T26 PO; -LOP25 PO; +METO25TA6 PO; -MYCO180T PO; -NYST15PO4 TP; -PROG1 PO; +TEMA15CA5 PO; -VALC450 PO
[2019-12-31] MEDS ORDERED: MORPHINE SULFATE 4 MG/ML CPJ (NOT FOR IM USE) IV STA (04:09)
[2019-12-31] MEDS ORDERED: ONDANSETRON HCL 4MG/2ML INJ IV STA (04:09)
[2019-12-31] MEDS ORDERED: ASPIRIN 81MG TABLET PO ONE (04:15)
[2019-12-31] MEDS ORDERED: NITROGLYCERIN 0.4MG TABLET SL SL PRN (04:15)
[2019-12-31 04:46] LABS: CHLORIDE 100 mEq/L (98-107)
[2019-12-31 05:04] LABS: BASOPHILS % 0.7 % (0.0-2.0); HEMATOCRIT. 30.2 % (36.0-48.0); HEMOGLOBIN. 9.8 g/dL (12.0-16.0); LYMPHOCYTES % 22.5 % (20.0-50.0); MEAN CORPUSCULAR HEMOGLOBIN 26.9 pg (28.0-32.0); MEAN CORPUSCULAR VOLUME 83.1 fL (81.0-99.0); MEAN PLATELET VOLUME 6.8 fl (7.4-10.4); MONOCYTES % 10.3 % (2.0-8.0); NEUTROPHILS % 60.5 % (40.0-76.0); PLATELET 306 x1000/uL (130-400); RED BLOOD CELL COUNT 3.63 mill/uL (4.2-5.4)
[2019-12-31] MEDS ORDERED: CEFTRIAXONE 1 G PREMIX 50 ML IV ONE (06:15)
[2019-12-31] MEDS ORDERED: AZITHROMYCIN 500 MG in DEXT 5% WATER 250 ML IV ONE (06:15)
[2019-12-31 13:31] VITALS: BP 155/92
[2019-12-31] MEDS: DEXT 5%/0.45% NACL 1000ML 1,000 ML IV SCH (15:22)
[2019-12-31] MEDS: CLONIDINE 0.2MG TABLET PO SCH ×2 (15:23→23:39)
[2019-12-31] MEDS: ONDANSETRON HCL 4MG/2ML INJ IV PRN (15:23)
[2019-12-31 16:00] VITALS: BP 185/115
[2019-12-31] MEDS: CALCIUM ACETATE 667MG CAPSULE PO SCH (17:17)
[2019-12-31 17:20] VITALS: BP 159/98
[2019-12-31] MEDS ORDERED: CALCIUM ACETATE 667MG CAPSULE PO SCH (18:10)
[2019-12-31] MEDS ORDERED: AZITHROMYCIN 500 MG in DEXT 5% WATER 250 ML IV SCH (19:45)
[2019-12-31 20:00] VITALS: BP 184/109
[2019-12-31] MEDS ORDERED: TEMAZEPAM 15MG CAPSULE PO PRN (21:00)
[2019-12-31] MEDS: FAMOTIDINE 20MG TABLET PO SCH (23:39)
[2019-12-31] MEDS: HYDRALAZINE HCL 100MG TABLET PO SCH (23:39)
[2019-12-31] MEDS: METOPROLOL TARTRATE 25MG TABLET PO SCH (23:39)
[2020-01-01] VITALS (7 sets, daily range): BP systolic 120–192; BP diastolic 69–117
[2020-01-01] MEDS: CLONIDINE 0.2MG TABLET PO SCH ×3 (05:08→22:22)
[2020-01-01] MEDS: HYDRALAZINE HCL 100MG TABLET PO SCH ×3 (05:09→22:22)
[2020-01-01 07:01] LABS: PHOSPHORUS 4.5 mg/dL (2.5-4.9)
[2020-01-01 07:06] LABS: BASOPHILS % 0.9 % (0.0-2.0); EOSINOPHILS % 10.5 % (0.0-5.0); HEMATOCRIT. 27.7 % (36.0-48.0); MEAN CORPUSCULAR HEMOGLOBIN 27.1 pg (28.0-32.0); MEAN CORPUSCULAR VOLUME 83.5 fL (81.0-99.0); MEAN PLATELET VOLUME 7.5 fl (7.4-10.4); MONOCYTES % 12.6 % (2.0-8.0); PLATELET 242 x1000/uL (130-400); RED BLOOD CELL COUNT 3.32 mill/uL (4.2-5.4); RED CELL DISTRIBUTION WIDTH 18.3 % (11.6-14.6)
[2020-01-01] MEDS: CEFTRIAXONE 1,000 MG in DEXTROSE 5% WATER 50 ML IV SCH (08:01)
[2020-01-01] MEDS: CALCIUM ACETATE 667MG CAPSULE PO SCH ×3 (08:01→18:34)
[2020-01-01] MEDS: METOPROLOL TARTRATE 25MG TABLET PO SCH ×2 (08:02→21:05)
[2020-01-01] MEDS: PREDNISONE 5MG TABLET PO SCH (08:02)
[2020-01-01] MEDS: CALCITRIOL 0.25MCG CAPSULE PO SCH (08:02)
[2020-01-01] MEDS: FOLIC ACID/VITAMIN B COMP W-C TABLET PO SCH (08:02)
[2020-01-01] MEDS: AZITHROMYCIN 250 MG in DEXT 5% WATER 250 ML IV SCH (08:52)
[2020-01-01] MEDS: ASPIRIN 81MG TABLET PO SCH ×2 (09:00→09:09)
[2020-01-01] MEDS ORDERED: PANTOPRAZOLE 40MG DR TABLET PO SCH (09:00)
[2020-01-01] MEDS ORDERED: ACETAMINOPHEN 325MG TABLET PO PRN (09:30)
[2020-01-01] MEDS: ONDANSETRON HCL 4MG/2ML INJ IV PRN (12:59)
[2020-01-01] MEDS: DEXT 5%/0.45% NACL 1000ML 1,000 ML IV SCH (15:42)
[2020-01-01] MEDS: FAMOTIDINE 20MG TABLET PO SCH (21:05)
[2020-01-02] VITALS: BP 132/74
[2020-01-02 04:28] VITALS: BP 137/77
[2020-01-02] MEDS: CLONIDINE 0.2MG TABLET PO SCH ×3 (05:18→21:03)
[2020-01-02] MEDS: HYDRALAZINE HCL 100MG TABLET PO SCH ×3 (05:18→21:02)
[2020-01-02 07:17] LABS: BASOPHILS % 0.8 % (0.0-2.0); EOSINOPHILS % 9.4 % (0.0-5.0); HEMATOCRIT. 25.4 % (36.0-48.0); HEMOGLOBIN. 8.3 g/dL (12.0-16.0); LYMPHOCYTES % 28.3 % (20.0-50.0); MEAN CORPUSCULAR HEMOGLOBIN 26.8 pg (28.0-32.0); MEAN CORPUSCULAR VOLUME 82.4 fL (81.0-99.0); MEAN PLATELET VOLUME 7.4 fl (7.4-10.4); MONOCYTES % 14.7 % (2.0-8.0); NEUTROPHILS % 46.8 % (40.0-76.0); PLATELET 244 x1000/uL (130-400); RED BLOOD CELL COUNT 3.08 mill/uL (4.2-5.4); RED CELL DISTRIBUTION WIDTH 17.7 % (11.6-14.6)
[2020-01-02 07:57] LABS: PHOSPHORUS 4.8 mg/dL (2.5-4.9)
[2020-01-02 08:00] VITALS: BP 135/79
[2020-01-02] MEDS: CALCITRIOL 0.25MCG CAPSULE PO SCH (08:56)
[2020-01-02] MEDS: CALCIUM ACETATE 667MG CAPSULE PO SCH ×3 (08:56→17:50)
[2020-01-02] MEDS: PREDNISONE 5MG TABLET PO SCH (08:57)
[2020-01-02] MEDS: FOLIC ACID/VITAMIN B COMP W-C TABLET PO SCH (08:57)
[2020-01-02] MEDS: ASPIRIN 81MG TABLET PO SCH (09:00)
[2020-01-02] MEDS: METOPROLOL TARTRATE 25MG TABLET PO SCH ×2 (09:00→21:02)
[2020-01-02] MEDS: AZITHROMYCIN 250 MG in DEXT 5% WATER 250 ML IV SCH (10:37)
[2020-01-02 12:00] VITALS: BP 124/70
[2020-01-02] MEDS: CEFTRIAXONE 1,000 MG in DEXTROSE 5% WATER 50 ML IV SCH (13:44)
[2020-01-02 16:00] VITALS: BP 138/76
[2020-01-02 20:00] VITALS: BP 167/83
[2020-01-02] MEDS: FAMOTIDINE 20MG TABLET PO SCH (21:03)
[2020-01-03] VITALS: BP 126/69
[2020-01-03] MEDS ORDERED: IPRATROPIUM/ALBUTEROL 0.5-3(2.5)MG/3ML NEB HHN SCH
[2020-01-03 04:28] VITALS: BP 143/74
[2020-01-03 04:53] VITALS: BP 143/74
[2020-01-03] MEDS: CLONIDINE 0.2MG TABLET PO SCH (05:19)
[2020-01-03] MEDS: HYDRALAZINE HCL 100MG TABLET PO SCH (05:20)
[2020-01-03] MEDS ORDERED: FLUTICASONE/VILANTEROL 200-25 BLST.W.DEV ORI SCH ×2 (09:00)
[2020-01-03] MEDS: CALCITRIOL 0.25MCG CAPSULE PO SCH (09:46)
[2020-01-03] MEDS: METOPROLOL TARTRATE 25MG TABLET PO SCH (09:48)
[2020-01-03] MEDS: ASPIRIN 81MG TABLET PO SCH (09:48)
[2020-01-03] MEDS: PREDNISONE 5MG TABLET PO SCH (09:48)
[2020-01-03] MEDS: FOLIC ACID/VITAMIN B COMP W-C TABLET PO SCH (09:48)
[2020-01-03] MEDS: CALCIUM ACETATE 667MG CAPSULE PO SCH (09:49)
[2020-01-03 10:14] VITALS: BP 154/86
== END 2020-01-03 11:04 | disposition home health service (06) | DRG 139 ==
LOC: ER 04:05 → 7WST 05:12 → EDBEDREQ 05:27 → EDBEDREQTM 05:27 → EDBEDREQ 08:13 → ENRESERV 11:03 → CANRESERV 11:03 → ENRESERV 12:23 → 6WST 01-01 16:55
PROVIDERS: ADMIT Internal Medicine; ATTEND Internal Medicine
PROC: 5A1D70Z Performance of Urinary Filtration, Intermittent, Less than 6 Hours Per Day (ICD-10-PCS; 2019-12-31)
PROC: 5A1D70Z Performance of Urinary Filtration, Intermittent, Less than 6 Hours Per Day (ICD-10-PCS; principal; 2020-01-02)
DX: J18.9 Pneumonia, unspecified organism (principal); I24.8 Other forms of acute ischemic heart disease; E46 Unspecified protein-calorie malnutrition; N18.6 End stage renal disease; M32.9 Systemic lupus erythematosus, unspecified; I27.20 Pulmonary hypertension, unspecified; I12.0 Hypertensive chronic kidney disease with stage 5 chronic kidney disease or end stage renal disease; E83.39 Other disorders of phosphorus metabolism; D64.9 Anemia, unspecified; I50.30 Unspecified diastolic (congestive) heart failure; N25.81 Secondary hyperparathyroidism of renal origin; Z96.642 Presence of left artificial hip joint; E78.5 Hyperlipidemia, unspecified; J32.9 Chronic sinusitis, unspecified; J42 Unspecified chronic bronchitis; Z20.828 Contact with and (suspected) exposure to other viral communicable diseases; Z88.9 Allergy status to unspecified drugs, medicaments and biological substances; Z90.710 Acquired absence of both cervix and uterus; Z88.1 Allergy status to other antibiotic agents; Z85.41 Personal history of malignant neoplasm of cervix uteri; Z88.0 Allergy status to penicillin; Z99.2 Dependence on renal dialysis; Z88.8 Allergy status to other drugs, medicaments and biological substances; Z79.899 Other long term (current) drug therapy; Z68.24 Body mass index [BMI] 24.0-24.9, adult
CPT/HCPCS: 36415; 71045; 74018; 80048; 80053; 83605; 83735; 83970; 84100; 84484; 85025; 87635; 93005; 93306; 97161; 99285; J0456; J0696; J2270; J2405; J7060; J7512

== ENCOUNTER 2020-11-01 16:40 | Emergency (ER) | payer MEDICAID ==
[~2020-11-01] VITALS: Ht 167.6 cm; Wt 70.0 kg
[2020-11-01] MEDS ORDERED: ONDANSETRON HCL 4MG/2ML INJ IV STA (17:01)
[2020-11-01] MEDS ORDERED: CLONIDINE 0.1MG TABLET PO ONE (17:15)
[2020-11-01 17:37] LABS: BASOPHILS % 0.4 % (0.0-2.0); EOSINOPHILS % 3.4 % (0.0-5.0); HEMATOCRIT. 39.9 % (36.0-48.0); HEMOGLOBIN. 12.8 g/dL (12.0-16.0); LYMPHOCYTES % 17.5 % (20.0-50.0); MEAN CORPUSCULAR HEMOGLOBIN 28.3 pg (28.0-32.0); MEAN CORPUSCULAR VOLUME 88.1 fL (81.0-99.0); MEAN PLATELET VOLUME 7.2 fl (7.4-10.4); MONOCYTES % 10.5 % (2.0-8.0); NEUTROPHILS % 68.2 % (40.0-76.0); PLATELET 238 x1000/uL (130-400); RED BLOOD CELL COUNT 4.53 mill/uL (4.2-5.4)
[2020-11-01 17:44] LABS: CHLORIDE 100 mEq/L (98-107)
[2020-11-01] MEDS ORDERED: ONDA4TAB11 PO (21:28)
[2020-11-01 21:47] VITALS: BP 152/100
== END 2020-11-01 21:50 | disposition home or self-care (01) ==
LOC: ER 16:40
DX: R53.1 Weakness (principal); R11.2 Nausea with vomiting, unspecified; I12.0 Hypertensive chronic kidney disease with stage 5 chronic kidney disease or end stage renal disease; N18.6 End stage renal disease; Z94.0 Kidney transplant status; Z90.710 Acquired absence of both cervix and uterus; Z96.642 Presence of left artificial hip joint; Z88.3 Allergy status to other anti-infective agents; Z88.0 Allergy status to penicillin
CPT/HCPCS: 36415; 71045; 74176; 76857; 80053; 82962; 83690; 83880; 84484; 85025; 93005; 96374; 99285; J2405